=== PATIENT | male | born 1950 | race Caucasian/White ===

== ENCOUNTER 2020-09-04 08:13 | Day surgery (SDC) | payer OTHER ==
[2020-08-31 10:55] VITALS: BMI 30.4
[2020-09-04] MEDS ORDERED: ERYTHROMYCIN 0.5% OPHTHALMIC OINTMENT 3.5 GM TUBE ONE (10:33)
[2020-09-04] MEDS ORDERED: POVIDONE-IODINE 5% OPHTHALMIC PREP 30 ML SOLUTION ONE (10:33)
[2020-09-04] MEDS ORDERED: TETRACAINE 0.5% OPHTH SOLN 2 ML BOTTLE ONE (10:33)
[2020-09-04] MEDS ORDERED: LIDOCAINE 1%/EPI 1:100000 (20 ML MULTI DOSE VIAL) ONE (10:33)
[2020-09-04] MEDS ORDERED: MIDAZOLAM HCL 2 MG/2 ML SINGLE DOSE VIAL ONE ×2 (10:37→11:10)
[2020-09-04] MEDS ORDERED: PROPOFOL 20 ML ONE ×2 (10:37→11:06)
[2020-09-04] MEDS ORDERED: ceFAZolin SODIUM 1 GM VIAL ONE (11:22)
[2020-09-04] MEDS ORDERED: ONDANSETRON 4 MG/2 ML VIAL ONE (12:04)
[2020-09-04] MEDS ORDERED: DEXAMETHASONE SOD PHOSPHATE 4 MG/1 ML VIAL ONE (12:04)
[2020-09-04] MEDS ORDERED: oxyCODONE HCL 5 MG TABLET PO PRN (12:46)
[2020-09-04] MEDS ORDERED: ONDANSETRON 4 MG/2 ML VIAL IVPUSH PRN (12:46)
[2020-09-04] MEDS ORDERED: LACTATED RINGERS SOLUTION 1,000 ML IV SCH (13:00)
[2020-09-04 15:03] VITALS: BP 121/58; PULSE 79; TEMP 97.9
== END 2020-09-04 14:30 | disposition home or self-care (01) ==
LOC: FASU 08:13
PROVIDERS: ATTEND Ophthalmology
PROC: 08SP0ZZ Reposition Left Upper Eyelid, Open Approach (ICD-10-PCS; principal; 2020-09-04 11:32)
DX: C44.1091 Unspecified malignant neoplasm of skin of left upper eyelid, including canthus (principal)
CPT/HCPCS: 82962; 94760